=== PATIENT | female | born 1995 | race American Indian/Alaskan Native ===

== ENCOUNTER 2017-02-13 21:13 | Emergency (ER) | payer SELFPAY ==
[2017-02-13 22:26] LABS: Hematocrit 28.8 % (30.3-42.9); Hemoglobin 9.7 gm/dl (10.1-14.3); Mean Corpuscular HGB Conc 34 % (30-34); Mean Corpuscular Hemoglobin 31 pg (28-32); Mean Corpuscular Volume 93 fl (79-97); Platelet Count 197 K/mm3 (140-440); Red Blood Count 3.11 M/mm3 (3.65-5.03); Red Cell Distribution Width 14.6 % (13.2-15.2); White Blood Count 9.8 K/mm3 (4.5-11.0)
[2017-02-13 22:56] LABS: Anion Gap 14 mmol/L; Blood Urea Nitrogen 9 mg/dL (7-17); Calcium 8.5 mg/dL (8.4-10.2); Carbon Dioxide 24 mmol/L (22-30); Chloride 104.7 mmol/L (98-107); Glucose 83 mg/dL (65-100); Potassium 3.8 mmol/L (3.6-5.0); Sodium 139 mmol/L (137-145)
--- NOTE | 2017-02-13 23:02 | Ultrasound Report ---
FINAL REPORT EXAM: US OB \T\gt; = 14 WEEKS FETUS HISTORY: pelvic pain,preg\T\gt; 20weeks TECHNIQUE: Obstetrical ultrasound transabdominal PRIORS: Prior exam is August 07, 2016 [place] FINDINGS: Single live intrauterine gestation identified cardiac activity is present with heart rate 171 beats per minute The placenta is posterior Cervical length is 3.7 centimeters biometric measurements were obtained Biparietal diameter 23 weeks 4 days Head circumference 23 weeks 2 days Abdominal circumference 22 weeks 6 days Femur length 22 weeks 3 days Based on today's exam estimated gestational age is 23 weeks 0 days. This demonstrates adequate interval growth. Clinical age is 22 weeks 6 days estimated weight today is 530 grams. Following structures were seen and appear grossly unremarkable, stomach, kidneys, urinary bladder, diaphragm, four-chamber view of the heart, three-vessel cord and cord insert Presentation is cephalic. Amniotic fluid appears adequate. IMPRESSION: Single live intrauterine gestation estimated gestational age on today's exam 23 weeks 0 days.
[2017-02-14 02:10] LABS: Bacteria,Urine 3+ /HPF (Negative); Bilirubin,Urine NEG (Negative); Blood,Urine SM (Negative); Ketones,Urine NEG (Negative); Leukocyte Esterase,Urine SM (Negative); Mucus,Urine 3+ /HPF; Nitrite,Urine POS (Negative); Urobilinogen,Urine < 2.0 mg/dL (<2.0)
[2017-02-14 10:39] VITALS: BP 90/60
[2017-02-14] MEDS ORDERED: MACROBID PO ONE (12:07)
--- NOTE | 2017-02-14 12:16 | Emergency Department Report ---
ED General Adult HPI - General Chief complaint: Urogenital-Female Stated complaint: ABD PAIN, CHEST PAIN, VAG PAIN Time Seen by Provider: 02/14/17 11:56 Source: patient Mode of arrival: Ambulatory Limitations: No Limitations - History of Present Illness Initial comments: 21-year-old female presents to the emergency Department with multiple complaints. States for the past several weeks she has been having intermittent vaginal irritation, heartburn, and lower pelvic pain. She also reports occasional lightheadedness and difficulty breathing. She denies passing out. There is been no nausea or vomiting. Patient states that he is currently , but does not know how far along she is. She has not received any care for this . At this time, the patient reports her symptoms have resolved. There are no other complaints. -: Gradual, week(s) Location: chest, abdomen, pelvis Radiation: non-radiation Severity scale (0 -10): 4 Quality: aching Consistency: intermittent, now resolved Improves with: none Worsens with: none Associated Symptoms: shortness of breath Treatments Prior to Arrival: none - Related Data Previous Rx's Medication Instructions Recorded Last Taken Type Ranitidine HCl [Zantac 150 MG TAB] 150 mg PO Q12H #60 tablet 06/26/15 Unknown Rx traMADol [Ultram 50 MG tab] 50 mg PO Q6HR PRN #20 tablet 06/26/15 Unknown Rx Allergies Allergy/AdvReac Type Severity Reaction Status Date / Time No Known Allergies Allergy Verified 08/04/16 17:30 ED Review of Systems ROS: Stated complaint: ABD PAIN, CHEST PAIN, VAG PAIN Other details as noted in HPI Comment: All other systems reviewed and negative Respiratory: shortness of breath Cardiovascular: chest pain, syncope (lightheadedness, no loss of consciousness) Gastrointestinal: abdominal pain Genitourinary: as per HPI ED Past Medical Hx - Past Medical History Previous Medical History?: No - Surgical History Past Surgical History?: No - Family History Family history: no significant - Social History Smoking Status: Never Smoker Substance Use Type: None - Medications Home Medications: Home Medications Medication Instructions Recorded Confirmed Last Taken Type Ranitidine HCl [Zantac 150 MG TAB] 150 mg PO Q12H #60 tablet 06/26/15 Unknown Rx traMADol [Ultram 50 MG tab] 50 mg PO Q6HR PRN #20 tablet 06/26/15 Unknown Rx ED Physical Exam - General Limitations: No Limitations General appearance: alert, in no apparent distress - Head Head exam: Present: atraumatic, normocephalic - Eye Eye exam: Present: normal appearance, PERRL, EOMI - ENT ENT exam: Present: normal exam, normal orophraynx, mucous membranes moist - Neck Neck exam: Present: normal inspection, full ROM. Absent: tenderness - Respiratory Respiratory exam: Present: normal lung sounds bilaterally. Absent: respiratory distress - Cardiovascular Cardiovascular Exam: Present: regular rate, normal rhythm, normal heart sounds - GI/Abdominal GI/Abdominal exam: Present: soft, distended (gravid uterus just above the umbilicus), normal bowel sounds. Absent: tenderness, guarding - Extremities Exam Extremities exam: Present: normal inspection, full ROM. Absent: tenderness - Back Exam Back exam: Present: normal inspection, full ROM. Absent: tenderness - Neurological Exam Neurological exam: Present: alert, oriented X3. Absent: motor sensory deficit - Skin Skin exam: Present: warm, dry, intact ED Course Vital Signs 02/13/17 02/14/17 02/14/17 21:52 05:29 10:39 Temperature 98.7 F 98.6 F 98.1 F Pulse Rate 92 H 82 100 H Respiratory 18 18 18 Rate Blood Pressure 95/45 103/64 Blood Pressure 90/60 [Left] O2 Sat by Pulse 100 100 100 Oximetry ED Medical Decision Making - Lab Data Result diagrams: 02/13/17 22:04 02/13/17 22:04 - Radiology Data Radiology results: report reviewed, image reviewed ultrasound reveals a single, live intrauterine with estimated gestational age of 23 weeks 0 days. - Medical Decision Making Lab and imaging results reviewed and discussed with the patient. Patient will be given an oral dose of Macrobid for her UTI. Patient is in her second trimester with no care. I have spoken with Alejandra nurse hook and eye attacher for Dr. Hassan, [employer]. Patient will be discharged from the emergency department to go to OB assessment for further evaluation by OB. - Differential Diagnosis GERD, abdominal pain in , UTI Critical care attestation.: If time is entered above; I have spent that time in minutes in the direct care of this critically ill patient, excluding procedure time. ED Disposition Clinical Impression: UTI in Qualifiers: Trimester: second trimester Qualified Code(s): O23.42 - Unspecified infection of urinary tract in , second trimester Disposition: [id number]/TX-[id number] ANOTHER TYPE [facility]THCARE Is pt being admited?: No Condition: Undetermined Instructions: Urinary Tract Infection in Women (ED), (ED) Referrals: Assessment, OB [Other] - [facility] (Go there now for further evaluation.) Time of Disposition: 12:22
== END 2017-02-14 12:30 | disposition other institution (70) ==
LOC: ED 21:13
DX: O23.42 Unspecified infection of urinary tract in pregnancy, second trimester (principal); O26.892 Other specified pregnancy related conditions, second trimester; R12 Heartburn; Z3A.23 23 weeks gestation of pregnancy
CPT/HCPCS: 36415; 76805; 80048; 81001; 84702; 85027; 86900; 86901; 93005; 93010; 99285

== ENCOUNTER 2017-02-14 14:25 | Outpatient (CLI) | payer SELFPAY ==
[2017-02-14 14:44] VITALS: BP 102/55
[2017-02-14] MEDS ORDERED: LACTATED RINGERS 500 ML IV ONE (15:55)
--- NOTE | 2017-02-14 16:00 | Event Note ---
Date: 02/14/17 patient seen in triage after being evaluated in ED and dx with UTI. no records of rx in chart - macrobid called to [facility] [address]. Patient given provider list and encouraged to follow up on Thursday to begin care.
== END 2017-02-14 16:24 | disposition home or self-care (01) ==
LOC: TRG 14:25
PROVIDERS: ATTEND Obstetrics & Gynecology
DX: O23.42 Unspecified infection of urinary tract in pregnancy, second trimester (principal); O47.02 False labor before 37 completed weeks of gestation, second trimester; Z3A.23 23 weeks gestation of pregnancy